=== PATIENT | female | born 1960 | race Caucasian/White ===

== ENCOUNTER 2016-06-17 23:39 | Emergency (ER) | payer BC ==
[2016-06-18] MEDS ORDERED: HYDROmorphone 0.5 MG/0.5 ML Syringe IVPUSH ONE ×2 (00:08→00:49)
[2016-06-18] MEDS ORDERED: Lactated Ringers 1,000 ML IV SCH (00:15)
--- NOTE | 2016-06-18 00:16 | EDM.PDOC ---
ED HPI GI/ABDOMINAL - General Chief Complaint: Abdominal Pain Stated Complaint: STOMACH PAIN Time Seen by Provider: 06/18/16 00:10 Source: Reports: Patient, Old records History Limitations: Reports: No limitations - History of Present Illness INITIAL COMMENTS - FREE TEXT/NARRATIVE: 55 yo female presents with upper abdominal pain that began about an 90 min ago. Ate a turkey dinner about 8:30pm tonight. Pain is across her entire upper abdomen. No nausea. BM's have been normal. Is s/p gastric bypass. Still has her gallbladder. No fever. 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) - Related Data Allergies/ADRs: Allergies Allergy/AdvReac Type Severity Reaction Status Date / Time adhesive Allergy Rash Verified 02/18/15 06:58 aspirin Allergy Itching Verified 02/18/15 06:58 [From Darvon Compound-65] caffeine Allergy Itching Verified 02/18/15 06:58 [From Darvon Compound-65] cefazolin sodium [From Ancef] Allergy Swelling Verified 02/18/15 06:58 egg yolk Allergy Cannot Verified 02/18/15 06:58 Remember latex Allergy Hives Verified 02/18/15 06:58 metoclopramide HCl Allergy Swelling Verified 02/18/15 06:58 [From Reglan] oxycodone Allergy Itching Verified 02/18/15 06:58 penicillin Allergy Hives Verified 02/18/15 06:58 propoxyphene HCl Allergy Itching Verified 02/18/15 06:58 [From Darvon Compound-65] propoxyphene napsylate Allergy Itching Verified 02/18/15 06:58 [From Darvocet-N] Sulfa (Sulfonamide Allergy Cannot Verified 02/18/15 06:58 Antibiotics) Remember chlorine Allergy Hives Uncoded 02/18/15 06:58 dust Allergy Cannot Uncoded 02/18/15 06:58 Remember egg whites Allergy Cannot Uncoded 02/18/15 06:58 Remember mold extract Allergy Cannot Uncoded 02/18/15 06:58 Remember Home Meds: Home Meds ALPRAZolam [Xanax] 0.25 mg PO BEDTIME 04/17/14 [History] Cetirizine [ZyrTEC] 10 mg PO BEDTIME 04/17/14 [History] EPINEPHrine [Epipen] 0.3 ml IM ASDIRECTED 04/17/14 [History] Acetaminophen [Tylenol Jr. 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 Musculoskeletal History: rib fx Other Neuro History: restless leg syndrome Psychiatric History: Reports: Anxiety, Depression Other Dermatologic History: "lots of age spots that happened at one time" - Infectious Disease History Infectious Disease History: Reports: Chicken pox - Past Surgical History Other HEENT Surgeries/Procedures: 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 GI Surgical History: Reports: Other (see below) Other GI Surgeries/Procedures: lap band removal to rny Other Female Surgeries/Procedures: tieing of the cervix with 2 pregancys Other Musculoskeletal Surgeries/Procedures:: bilat knee replaced-2012 Social & Family History - Tobacco Use Smoking Status *Q: Current Every Day Smoker Years of Tobacco use: 40 Packs/Tins Daily: 1 Used Tobacco, but Quit: No Month Tobacco Last Used: January Second Hand Smoke Exposure: No - Alcohol Use Days Per Week of Alcohol Use: 0 - Recreational Drug Use Recreational Drug Use: Yes Drug Use in Last 12 Months: Yes Recreational Drug Type: Reports: Marijuana/Hashish Recreational Drug Use Frequency: Weekly ED ROS GENERAL - Review of Systems Review Of Systems: See Below Constitutional: Reports: no symptoms HEENT: Reports: No symptoms Respiratory: Reports: No Symptoms Cardiovascular: Reports: No symptoms Endocrine: Reports: no symptoms GI/Abdominal: Reports: Abdominal pain : Reports: no symptoms Musculoskeletal: Reports: no symptoms Skin: Reports: no symptoms Neurological: Reports: No Symptoms Psychiatric: Reports: No symptoms ED EXAM, GI/ABD - Physical Exam Exam: See Below Exam Limited By: No limitations General Appearance: alert, WD/WN, no apparent distress Eyes: bilateral: normal appearance Ears: normal external exam, normal canal, hearing grossly normal Nose: normal inspection, normal mucosa, no blood Throat/Mouth: Normal inspection, Normal lips, Normal gums, Normal oropharynx, Normal voice, No airway compromise Head: atraumatic, normocephalic Neck: normal inspection, supple, non-tender Respiratory/Chest: no respiratory distress, lungs clear, normal breath sounds, no accessory muscle use Cardiovascular: regular rate, rhythm, no edema GI/Abdominal: soft, non tender, no distention, hypoactive bowel sounds. No: distention, guarding, rebound, rigidity, hepatomegaly, hernia, mass, McBurney's sign, Cabello's sign Back Exam: normal inspection Extremities: normal inspection, normal range of motion, non-tender, no pedal edema Neurological: alert, oriented, CN II-XII intact, normal cognition, no motor/ sensory deficits Psychiatric: normal affect, normal mood Skin Exam: Warm, Dry, Intact, Normal color, No rash Lymphatic: no adenopathy Course - Vital Signs Text/Narrative:: lactated ringers 150 ml/h IV, Dilaudid 0.5 mg IV x 2, Zofran ODT [address] abd/pelvis with contrast-? early or partial bowel obstruction Patient slept in the ER and seemed more comfortable the further out from her meal she got. Discussed with Dr. Vincent @ 6855. Last Recorded V/S: Last Vital Signs Temp 36.6 C 06/18/16 00:29 Pulse 76 06/18/16 00:29 Resp 16 06/18/16 00:29 BP 153/52 H 06/18/16 00:29 Pulse Ox 100 06/18/16 00:29 - Orders/Labs/Meds Orders: Active Orders 24 hr Category Date Time Status Abdomen Pelvis w Cont [CT] Stat Exams 06/18/16 00:10 Taken Iopamidol [Isovue-300 (61%)] Med 06/18/16 01:05 Active 130 ml IV . DIRECTED PRN Lactated Ringers [Ringers, Lactated] 1,000 ml Med 06/18/16 00:15 Active IV ASDIRECTED Sodium Chloride 0.9% [Normal Saline] 80 ml Med 06/18/16 01:15 Active IV ASDIRECTED Medication Orders Lactated Ringer's (Ringers, Lactated) 1,000 mls @ 150 mls/hr IV ASDIRECTED MARIANNA Last Admin: 06/18/16 00:25 Dose: 150 mls/hr Sodium Chloride (Normal Saline) 80 mls @ 3.5 mls/sec IV ASDIRECTED MARIANNA Last Admin: 06/18/16 01:31 Dose: 3.5 mls/sec Iopamidol (Isovue-300 (61%)) 130 ml IV . DIRECTED PRN PRN Reason: RADIOLOGY EXAM Stop: 06/19/16 01:06 Last Admin: 06/18/16 01:30 Dose: 130 ml Labs: Laboratory Tests 06/18/16 06/18/16 Range/Units 00:09 00:29 WBC 7.4 (4.5-11.0) K/uL RBC 5.06 (3.30-5.50) M/uL Hgb 15.1 H (12.0-15.0) g/dL Hct 43.3 (36.0-48.0) % MCV 86 (80-98) fL MCH 30 (27-31) pg MCHC 35 (32-36) % Plt Count 203 (150-400) K/uL Sodium 144 (140-148) mmol/L Potassium 3.8 (3.6-5.2) mmol/L Chloride 106 (100-108) mmol/L Carbon Dioxide 28 (21-32) mmol/L Anion Gap 10.1 (5.0-14.0) mmol/L BUN 12 (7-18) mg/dL Creatinine 1.1 H (0.6-1.0) mg/dL Est Cr Clr Drug Dosing 52.82 mL/min Estimated GFR (MDRD) 51 L (>60) Glucose 98 (74-106) mg/dL Calcium 8.7 (8.5-10.1) mg/dL Total Bilirubin 0.5 (0.2-1.0) mg/dL AST 71 H (15-37) U/L ALT 52 (12-78) U/L Alkaline Phosphatase 105 (46-116) U/L Total Protein 7.4 (6.4-8.2) g/dL Albumin 3.8 (3.4-5.0) g/dL Globulin 3.6 H (2.3-3.5) g/dL Albumin/Globulin Ratio 1.1 L (1.2-2.2) Lipase 118 (73-393) U/L Meds: Medications Generic Name Dose Route Start Last Admin Trade Name Dawit PRN Reason Stop Dose Admin Lactated Ringer's 1,000 mls @ 150 mls/hr 06/18/16 00:15 06/18/16 00:25 Ringers, Lactated IV 150 mls/hr ASDIRECTED MARIANNA Administration Sodium Chloride 80 mls @ 3.5 mls/sec 06/18/16 01:15 06/18/16 01:31 Normal Saline IV 3.5 mls/sec ASDIRECTED MARIANNA Administration Iopamidol 130 ml 06/18/16 01:05 06/18/16 01:30 Isovue-300 (61%) IV 06/19/16 01:06 130 ml . DIRECTED PRN Administration RADIOLOGY EXAM Discontinued Medications Generic Name Dose Route Start Last Admin Trade Name Dawit PRN Reason Stop Dose Admin Hydromorphone HCl 0.5 mg 06/18/16 00:08 06/18/16 00:25 Dilaudid IVPUSH 06/18/16 00:09 0.5 mg ONETIME ONE Administration Hydromorphone HCl 0.5 mg 06/18/16 00:49 06/18/16 00:54 Dilaudid IVPUSH 06/18/16 00:50 0.5 mg ONETIME ONE Administration Ondansetron HCl 4 mg 06/18/16 02:08 06/18/16 02:23 Zofran Odt PO 06/18/16 02:09 4 mg ONETIME ONE Administration Sodium Chloride 10 ml 06/18/16 01:05 06/18/16 01:31 Saline Flush FLUSH 06/18/16 01:06 10 ml ONETIME ONE Administration Departure - Departure Time of Disposition: 07:00 Disposition: Home, Self-Care 01 Condition: fair Clinical Impression: Partial bowel obstruction Abdominal pain Qualifiers: Abdominal location: upper abdomen, unspecified Qualified Code(s): R10.10 - Upper abdominal pain, unspecified Referrals: Alicia Ritter CNM [Primary Care Provider] - Forms: ED Department Discharge - My Orders Last 24 Hours: My Active Orders 06/18/16 00:10 Abdomen Pelvis w Cont [CT] Stat 06/18/16 00:15 Lactated Ringers [Ringers, Lactated] 1,000 ml IV ASDIRECTED 06/18/16 01:05 Iopamidol [Isovue-300 (61%)] 130 ml IV . DIRECTED PRN 06/18/16 01:15 Sodium Chloride 0.9% [Normal Saline] 80 ml IV ASDIRECTED - Assessment/Plan Last 24 Hours: My Active Orders 06/18/16 00:10 Abdomen Pelvis w Cont [CT] Stat 06/18/16 00:15 Lactated Ringers [Ringers, Lactated] 1,000 ml IV ASDIRECTED 06/18/16 01:05 Iopamidol [Isovue-300 (61%)] 130 ml IV . DIRECTED PRN 06/18/16 01:15 Sodium Chloride 0.9% [Normal Saline] 80 ml IV ASDIRECTED
[2016-06-18 00:29] VITALS: BP 153/52
[2016-06-18] MEDS ORDERED: Sodium Chloride 0.9% 10 ML Syringe FLUSH ONE (01:05)
[2016-06-18] MEDS ORDERED: Iopamidol 612 MG/ML 150 ML Bottle IV PRN (01:05)
[2016-06-18] MEDS ORDERED: Sodium Chloride 0.9% 80 ML IV SCH (01:15)
[2016-06-18] MEDS ORDERED: Ondansetron 4 MG Tab.DIS PO ONE (02:08)
== END 2016-06-18 06:17 | disposition home or self-care (01) ==
LOC: JP.ED 23:39
DX: K56.69 Other intestinal obstruction (principal); R10.10 Upper abdominal pain, unspecified; F41.9 Anxiety disorder, unspecified; F32.9 Major depressive disorder, single episode, unspecified; F17.210 Nicotine dependence, cigarettes, uncomplicated; Z79.899 Other long term (current) drug therapy; Z98.890 Other specified postprocedural states; Z88.0 Allergy status to penicillin; Z88.1 Allergy status to other antibiotic agents; Z88.8 Allergy status to other drugs, medicaments and biological substances; Z88.2 Allergy status to sulfonamides; Z91.012 Allergy to eggs; Z91.040 Latex allergy status; Z91.048 Other nonmedicinal substance allergy status
CPT/HCPCS: 36415; 74177; 80053; 83690; 85027; 96361; 96374; 96376; 99284; A9270; J1170; J7030; J7050; J7120

== ENCOUNTER 2017-03-12 22:49 | Emergency (ER) | payer BC | END 2017-03-12 23:04 | disposition left against medical advice (07) | LOC: JP.ED 22:49 | DX: Z53.21 Procedure and treatment not carried out due to patient leaving prior to being seen by health care provider (principal) ==

== ENCOUNTER 2020-04-06 09:01 | Day surgery (SDC) | payer BC ==
[2020-04-06] MEDS ORDERED: Dextrose 5%-Lactated Ringers 1,000 ML IV SCH (09:30)
[2020-04-06] MEDS ORDERED: Albuterol/Ipratropium 3.0-0.5 MG/3 ML Neb Soln NEB ONE (09:30)
[2020-04-06] MEDS ORDERED: Propofol 200 MG/20 ML SDV ONE ×2 (09:55→13:35)
[2020-04-06] MEDS ORDERED: fentaNYL 100 MCG/2 ML SDV ONE (09:56)
[2020-04-06] MEDS ORDERED: Midazolam 1 MG/ML 2 ML SDV ONE (09:56)
[2020-04-06] MEDS ORDERED: Lactated Ringers 1,000 ML ONE (13:57)
[2020-04-06 15:05] VITALS: BP 134/86; PULSE 56
--- NOTE | 2020-04-13 13:09 | OR ---
DATE OF PROCEDURE: 04/06/2020 SURGEON: Esdras Vincent MD PREOPERATIVE DIAGNOSIS: Family history of colon carcinoma. POSTOPERATIVE DIAGNOSES: 1. Family history of colon carcinoma. 2. Two small colonic polyps involving the hepatic flexure and rectum. OPERATIVE PROCEDURE: Flexible colonoscopy with polypectomy by snare technique x2. ANESTHESIA: IV sedation. INDICATION FOR PROCEDURE: A 59-year-old presenting for a followup colonoscopy. She has a family history of colon carcinoma. The plan is to proceed with a colonoscopy with biopsies and/or polypectomy as indicated. Potential risks including bleeding and perforation were discussed and the patient wishes to proceed. DETAILS OF PROCEDURE: The patient was taken to the operating room and placed in a left lateral decubitus position. IV sedation was administered after which the initial digital rectal exam was performed and was unremarkable. The colonoscope was then passed to the level of the rectum with retroflexion revealing uncomplicated hemorrhoidal columns. The scope was eventually passed to the level of the cecum. The prep was fairly good with only a small amount of liquid stool present. There were no diverticula and no areas of colitis. There were 2 small polyps both in the range of 2 to 3 mm, one located in the hepatic flexure and one in the rectum. Both of these were excised by means of cautery snare technique and sent for histologic evaluation and good hemostasis of the polypectomy sites was seen. The scope was then withdrawn, the above findings reconfirmed, and the procedure concluded. The polyps this size would almost certainly be benign, and assuming this is the case, her next colonoscopy should be in 3 years. Esdras Vincent MD /[id number]
== END 2020-04-06 15:10 | disposition home or self-care (01) ==
LOC: JP.SDS 09:01
PROVIDERS: ATTEND Surgery
DX: Z12.11 Encounter for screening for malignant neoplasm of colon (principal); D12.8 Benign neoplasm of rectum; K64.9 Unspecified hemorrhoids; G47.33 Obstructive sleep apnea (adult) (pediatric); E66.01 Morbid (severe) obesity due to excess calories; F17.210 Nicotine dependence, cigarettes, uncomplicated; Z91.040 Latex allergy status; Z80.0 Family history of malignant neoplasm of digestive organs; Z88.8 Allergy status to other drugs, medicaments and biological substances; Z68.38 Body mass index [BMI] 38.0-38.9, adult
CPT/HCPCS: 45385; 88305; 94640; J2250; J2704; J3010; J7120; J7121; J7620-GY

== ENCOUNTER 2022-08-09 12:26 | Emergency (ER) | payer BC ==
[2022-08-09] MEDS ORDERED: HYDROmorphone 0.5 MG/0.5 ML Syringe IVPUSH ONE (13:39)
[2022-08-09] MEDS ORDERED: Prochlorperazine 10 MG/2 ML SDV IVPUSH ONE (13:40)
[2022-08-09] MEDS ORDERED: Sodium Chloride 0.9% 1,000 ML IV SCH (13:45)
[2022-08-09 13:47] LABS: HEMATOCRIT 44.5 % (34.3-46.0); HEMOGLOBIN 15.9 g/dL (11.2-15.5); MEAN CORPUSCULAR HEMOGLOBIN 30.2 pg (31.6-35.5); MEAN CORPUSCULAR HGB CONC 35.7 g/dL (31.6-35.5); MEAN CORPUSCULAR VOLUME 84.4 fL (81.4-99.0); RED BLOOD CELL COUNT 5.27 M/uL (3.77-5.24); WHITE BLOOD CELL COUNT,WBC 4.2 K/uL (3.2-11.0)
[2022-08-09 13:57] LABS: ALANINE AMINOTRANSFERASE,ALT 289 U/L (12-78); ALBUMIN 3.6 g/dL (3.4-5.0); ALKALINE PHOSPHATASE 229 U/L (46-116); ASPARTATE AMNIOTRANSFERASE,AST 423 U/L (15-37); BILIRUBIN TOTAL 1.5 mg/dL (0.2-1.0); BLOOD UREA NITROGEN,BUN 8 mg/dL (7-18); CARBON DIOXIDE,CO2 28 mmol/L (21-32); CHLORIDE,CL 101 mmol/L (100-108); CREATININE 0.8 mg/dL (0.6-1.0); EST CRCL DRUG DOSING (CG) 63.93 mL/min; ESTIMATED GFR 82 mL/min (>60); GLUCOSE RANDOM 113 mg/dL (74-106); POTASSIUM,K 3.7 mmol/L (3.6-5.2); PROTEIN TOTAL,TP 7.3 g/dL (6.4-8.2); SODIUM,NA 139 mmol/L (140-148)
[2022-08-09 13:58] LABS: ANION GAP 13.7 mmol/L (5.0-14.0)
[2022-08-09 14:03] LABS: APPEARANCE,URINE CLEAR (CLEAR); BILIRUBIN,URINE NEGATIVE (NEGATIVE); COLOR,URINE YELLOW (YELLOW); GLUCOSE,URINE NEGATIVE (NEGATIVE); KETONES,URINE 40 mg/dL (NEGATIVE); LEUKOCYTE ESTERASE,URINE NEGATIVE (NEGATIVE); NITRITE,URINE NEGATIVE (NEGATIVE); OCCULT BLOOD,URINE MODERATE (NEGATIVE); PH,URINE 6.5 (5.0-8.0); PROTEIN,URINE NEGATIVE (NEGATIVE)
[2022-08-09 14:09] LABS: AMPHETAMINES SCREEN, URINE NEGATIVE (NEGATIVE); BARBITURATE SCREEN,URINE NEGATIVE (NEGATIVE); METHAMPHETAMINES SCREEN, URINE NEGATIVE (NEGATIVE)
[2022-08-09 14:10] LABS: BENZODIAZEPINES SCREEN,URINE PRESUMPTIVE POSITIVE (NEGATIVE); METHADONE SCREEN, URINE NEGATIVE (NEGATIVE); OXYCODONE SCREEN,URINE NEGATIVE (NEGATIVE); PROPOXYPHENE SCREEN,URINE NEGATIVE (NEGATIVE); THC SCREEN,URINE 50 NG/ML PRESUMPTIVE POSITIVE (NEGATIVE)
[2022-08-09 14:11] LABS: AMORPHOUS SEDIMENT,URINE NOT SEEN; BACTERIA,URINE RARE; EPITHELIAL CELLS,URINE RARE; MUCUS,URINE NOT SEEN; RBC,URINE 30-40 (0-5); WBC,URINE NOT SEEN (0-5)
[2022-08-09 15:40] VITALS: BP 156/75; PULSE 50
== END 2022-08-09 15:50 | disposition home or self-care (01) ==
LOC: JP.ED 12:26
DX: K85.90 Acute pancreatitis without necrosis or infection, unspecified (principal); E66.9 Obesity, unspecified; Z68.36 Body mass index [BMI] 36.0-36.9, adult; F17.210 Nicotine dependence, cigarettes, uncomplicated; Z88.6 Allergy status to analgesic agent; Z91.048 Other nonmedicinal substance allergy status; Z91.012 Allergy to eggs; Z91.040 Latex allergy status; Z88.0 Allergy status to penicillin; Z88.2 Allergy status to sulfonamides; Z79.899 Other long term (current) drug therapy
CPT/HCPCS: 36415; 74176; 74176-26; 80053; 80305-QW; 81001; 83605; 83690; 85027; 96361; 96374; 99284-25; J0780; J7030

== ENCOUNTER 2023-10-05 06:30 | Day surgery (SDC) | payer BC, MEDICARE ==
[2023-10-05] MEDS: Sodium Chloride 0.9% 10 ML Syringe FLUSH PRN (07:20)
[2023-10-05 08:26] VITALS: BP 151/79; PULSE 66
== END 2023-10-05 08:33 | disposition home or self-care (01) ==
LOC: JP.SDS 06:30
PROVIDERS: ATTEND Ophthalmology
DX: H25.11 Age-related nuclear cataract, right eye (principal); G47.33 Obstructive sleep apnea (adult) (pediatric); F17.200 Nicotine dependence, unspecified, uncomplicated; Z88.8 Allergy status to other drugs, medicaments and biological substances
CPT/HCPCS: 00142-QZ; J3490; V2632

== ENCOUNTER 2023-10-19 08:25 | Day surgery (SDC) | payer BC, MEDICARE ==
[2023-10-19] MEDS: Sodium Chloride 0.9% 10 ML Syringe FLUSH ONE (09:17)
[2023-10-19 09:51] VITALS: BP 135/89; PULSE 65
== END 2023-10-19 10:10 | disposition home or self-care (01) ==
LOC: JP.SDS 08:25
PROVIDERS: ATTEND Ophthalmology
DX: H25.12 Age-related nuclear cataract, left eye (principal)
CPT/HCPCS: 66984; J3490; V2632